=== PATIENT | female | born 1995 | race Caucasian/White ===

== ENCOUNTER 2016-12-16 09:37 | Emergency (ER) | payer SELFPAY ==
[~2016-12-16] VITALS: Ht 170.2 cm; Wt 92.6 kg
[~2016-12-16 09:37] MED LIST: PREN0.01 PO
[2016-12-16 09:40] VITALS: BP 141/69; PULSE 77; RESP 16; TEMP 97.8; O2SAT 100
--- NOTE | 2016-12-16 09:56 | PD ---
HPI Chief Complaint: Complaint Time Seen by Provider: 09:45 Travel History International Travel<30 days: No Contact w/Intl Traveler<30days: No Traveled to known affect area: No History of Present Illness HPI Patient presents with complaints of urinary frequency and pain since this morning. Reports vaginal bleeding with hematuria. Denies nausea vomiting diarrhea or fever. Unsure status. Last menses 10/25/16. PFSH Past Medical History Hx Anticoagulant Therapy: No Cardiovascular Problems: No Chemotherapy: No Cerebrovascular Accident: No Diabetes: No Respiratory: No ?: Unknown Past Surgical History Hysterectomy: No Social History Alcohol Use: No Tobacco Use: No Substance Use: No Allergies-Medications (Allergen,Severity, Reaction): Coded Allergies: No Known Allergies (Unverified , 12/16/16) Reported Meds & Prescriptions Reported Meds & Active Scripts Active No Active Prescriptions or Reported Medications Review of Systems General / Constitutional: No: Fever Eyes: No: Visual changes HENT: No: Headaches Cardiovascular: No: Chest Pain or Discomfort Respiratory: No: Shortness of Breath Gastrointestinal: No: Abdominal Pain Genitourinary: Positive: Dysuria, Hematuria, Vaginal Bleeding Musculoskeletal: No: Pain Skin: No Rash Neurologic: No: Weakness Psychiatric: No: Depression Endocrine: No: Polydipsia Hematologic/Lymphatic: No: Easy Bruising Physical Exam Narrative GENERAL: Well-nourished, well-developed patient. SKIN: Focused skin assessment warm/dry. HEAD: Normocephalic. EYES: No scleral icterus. No injection or drainage. NECK: Supple, trachea midline. No JVD or lymphadenopathy. CARDIOVASCULAR: Regular rate and rhythm without murmurs, gallops, or rubs. RESPIRATORY: Breath sounds equal bilaterally. No accessory muscle use. GASTROINTESTINAL: Abdomen soft, non-tender, nondistended. MUSCULOSKELETAL: No cyanosis, or edema. BACK: Nontender without obvious deformity. No CVA tenderness. Data Data Last Documented VS Vital Signs Date Time Temp Pulse Resp B/P (MAP) Pulse Ox O2 Delivery O2 Flow Rate FiO2 12/16/16 09:40 97.8 77 16 141/69 (93) 100 Orders Orders Urinalysis - C+S If Indicated (12/16/16 09:52) Ed Urine Pregnancytest Poc (12/16/16 09:52) Labs Laboratory Tests Test 12/16/16 09:55 Urine Collection Type CLEAN CATCH Urine Color YELLOW Urine Turbidity CLEAR Urine pH 7.0 Urine Specific [place] 1.017 Urine Protein 100 mg/dL Urine Glucose (UA) NEG mg/dL Urine Ketones TRACE mg/dL Urine Occult Blood LARGE Urine Nitrite NEG Urine Bilirubin NEG Urine Leukocyte Esterase TRACE Urine RBC 0-3 /hpf Urine Squamous Epithelial Cells 6-8 /hpf Urine Amorphous Sediment MOD Microscopic Urinalysis Comment CULT NOT INDICATED Urine Collection Time 0900 [facility] Medical Decision Making Medical Screen Exam Complete: Yes Emergency Medical Condition: Yes Differential Diagnosis Miscarriage, UTI, hematuria, dysuria Narrative Course Assessment and plan discussed with patient and mother at bedside Diagnosis Primary Impression: Hematuria Qualified Codes: R31.9 - Hematuria, unspecified Patient Instructions: General Instructions Additional Instructions: Encourage fluids and a cranberry supplement, follow-up with PCP, return to emergency with any onset of new symptoms Med/Other Pt SpecificInfo: Prescription(s) given Scripts Ciprofloxacin (Cipro) 500 Mg Tab 500 MG PO BID for Infection for 3 Days, #6 TAB 0 Refills Prov: Mushtaq Craft MD 12/16/16 Disposition: 01 DISCHARGE HOME Condition: Good Mushtaq Craft MD Dec 16, 2016 09:56
[2016-12-16 10:02] LABS: BLOOD, URINE LARGE (NEG); GLUCOSE,URINE NEG (NEG); KETONE, URINE TRACE mg/dL (NEG); NITRITE,URINE NEG (NEG)
[2016-12-16 10:04] LABS: METHOD OF COLLECTION CLEAN CATCH; URINE COLOR YELLOW (YELLW/STRAW)
[2016-12-16 10:07] LABS: COMMENT (UR) CULT NOT INDICATED; CULTURE IF INDICATED CULT NOT INDICATED; RBC, URINE 0-3 /hpf (0-3)
[2016-12-16] MEDS ORDERED: CIPR-9 PO (10:23)
== END 2016-12-16 10:34 | disposition home or self-care (01) ==
LOC: PHED 09:37
DX: R31.9 Hematuria, unspecified (principal)
CPT/HCPCS: 81001; 84703; 99283

== ENCOUNTER 2016-12-26 19:43 | Emergency (ER) | payer SELFPAY ==
[~2016-12-26] VITALS: Ht 170.2 cm; Wt 80.0 kg
[~2016-12-26 19:43] MED LIST changes: +CIPR-9 PO; -PREN0.01 PO
[2016-12-26] MEDS ORDERED: IOHEXOL 350 MG/ML 10 ML VIAL (for RAD DIAG) IVCONTRAST ONE (19:44)
[2016-12-26 19:45] VITALS: BP 139/70; PULSE 126; RESP 16; TEMP 100; O2SAT 97
[2016-12-26] MEDS ORDERED: SODIUM CHLOR 0.9% 1000 ML INJ 1,000 ML IV SCH (22:09)
--- NOTE | 2016-12-26 22:14 | PD ---
HPI Chief Complaint: Abdominal Pain Time Seen by Provider: 22:03 Travel History International Travel<30 days: No Contact w/Intl Traveler<30days: No Traveled to known affect area: No History of Present Illness HPI 21-year-old female here for evaluation of abdominal pain, fever, and nausea. The patient reports that she was told by her physician that she may have had a miscarriage 2 weeks ago as she had some vaginal bleeding but negative . Her last menstrual period was at the end of October. Since yesterday she has been having mid abdominal pain that she rates as sharp, currently 5 out of 10, intermittently worse at times, no modifying factors. She has also felt very nauseous with decreased appetite, but has not vomited. She has had some loose bowel movements. She denies history of abdominal surgeries. No urinary symptoms. No vaginal bleeding or discharge. She is sexually active with one partner and believe she is in a monogamous relationship. No IVDU. PFSH Past Medical History Medical History: Denies Significant Hx Hx Anticoagulant Therapy: No Cardiovascular Problems: No Chemotherapy: No Cerebrovascular Accident: No Diabetes: No Diminished Hearing: No Respiratory: No Tetanus Vaccination: < 5 Years ?: Unknown LMP: 10/24/2016 Past Surgical History Surgical History: No Previous Surgery Hysterectomy: No Social History Alcohol Use: No Tobacco Use: No Substance Use: No Allergies-Medications (Allergen,Severity, Reaction): Coded Allergies: No Known Allergies (Unverified , 12/26/16) Reported Meds & Prescriptions Reported Meds & Active Scripts Active No Active Prescriptions or Reported Medications Review of Systems Except as stated in HPI: all other systems reviewed are Neg Physical Exam Narrative GENERAL: Well-developed, well-nourished, comfortable, no apparent distress. SKIN: Focused skin assessment warm/dry. No rash. No pallor. HEAD: Atraumatic. Normocephalic. EYES: Pupils equal and round. No scleral icterus. No injection or drainage. ENT: Mucous membranes pink and moist. NECK: Trachea midline. No JVD. CARDIOVASCULAR: Regular rate and rhythm. No murmur appreciated. RESPIRATORY: No accessory muscle use. Clear to auscultation. Breath sounds equal bilaterally. GASTROINTESTINAL: Abdomen soft, nondistended. Moderate periumbilical tenderness without rebound or guarding. Rest of abdomen is soft and nontender. Negative Zhao sign. No tenderness over McBurney's point. No hernias. Hyperactive bowel sounds. MECHANICAL PRESS OPERATOR: Exam performed in the presence of female nurse. Normal external genitalia. Scant/physiologic/slightly foul-smelling vaginal discharge. Normal cervix. No CMT. No adnexal masses or tenderness. MUSCULOSKELETAL: No obvious deformities. No clubbing. No cyanosis. No edema. No CVA tenderness. NEUROLOGICAL: Awake and alert. No obvious cranial nerve deficits. Motor grossly within normal limits. Normal speech. PSYCHIATRIC: Appropriate mood and affect; insight and judgment normal. Data Data Last Documented VS Vital Signs Date Time Temp Pulse Resp B/P (MAP) Pulse Ox O2 Delivery O2 Flow Rate FiO2 12/26/16 22:26 79 16 123/74 (90) 100 Room Air 12/26/16 19:45 100.0 Orders Orders Complete Blood Count With Diff (12/26/16 22:09) Comprehensive Metabolic Panel (12/26/16 22:09) Lipase (12/26/16 22:09) Prothrombin Time / Inr (Pt) (12/26/16 22:09) Act Partial Throm Time (Ptt) (12/26/16 22:09) Urinalysis - C+S If Indicated (12/26/16 22:09) Ct Abd/Pel W Iv Contrast(Rout) (12/26/16 22:09) Iv Access Insert/Monitor (12/26/16 22:09) Ecg Monitoring (12/26/16 22:09) Oximetry (12/26/16 22:09) Ondansetron Inj (Zofran Inj) (12/26/16 22:15) Sodium Chlor 0.9% 1000 Ml Inj (Ns 1000 M (12/26/16 22:09) Sodium Chloride 0.9% Flush (Ns Flush) (12/26/16 22:15) Ed Urine Pregnancytest Poc (12/26/16 22:09) Urine Culture (12/26/16 22:15) Iohexol 350 Inj (Omnipaque 350 Inj) (12/26/16 19:44) Ceftriaxone Inj (Rocephin Inj) (12/27/16 00:30) Gc And Chlamydia Pcr (12/27/16 00:21) Wet Prep Profile (12/27/16 00:21) Potassium Chloride (Kcl) (12/27/16 01:00) Labs Laboratory Tests Test 12/26/16:15 12/27/16 00:30 White Blood Count 6.7 TH/MM3 Red Blood Count 4.64 MIL/MM3 Hemoglobin 13.5 GM/DL Hematocrit 40.0 % Mean Corpuscular Volume 86.3 FL Mean Corpuscular Hemoglobin 29.1 PG Mean Corpuscular Hemoglobin Concent 33.7 % Red Cell Distribution Width 14.7 % Platelet Count 246 TH/MM3 Mean Platelet Volume 8.1 FL Neutrophils (%) (Auto) 85.4 % Lymphocytes (%) (Auto) 9.6 % Monocytes (%) (Auto) 4.7 % Eosinophils (%) (Auto) 0.0 % Basophils (%) (Auto) 0.3 % Neutrophils # (Auto) 5.7 TH/MM3 Lymphocytes # (Auto) 0.6 TH/MM3 Monocytes # (Auto) 0.3 TH/MM3 Eosinophils # (Auto) 0.0 TH/MM3 Basophils # (Auto) 0.0 TH/MM3 CBC Comment DIFF FINAL Differential Comment Prothrombin Time 11.4 SEC Prothromb Time International Ratio 1.0 RATIO Activated Partial Thromboplast Time 25.5 SEC Urine Color YELLOW Urine Turbidity HAZY Urine pH 6.0 Urine Specific [place] 1.032 Urine Protein 30 mg/dL Urine Glucose (UA) NEG mg/dL Urine Ketones NEG mg/dL Urine Occult Blood NEG Urine Nitrite NEG Urine Bilirubin NEG Urine Urobilinogen LESS THAN 2.0 MG/DL Urine Leukocyte Esterase SMALL Urine RBC 12 /hpf Urine WBC 12 /hpf Urine Squamous Epithelial Cells 22 /hpf Urine Bacteria RARE /hpf Urine Hyaline Casts 1 /lpf Urine Mucus MOD /lpf Microscopic Urinalysis Comment CULTURE INDICATED Blood Urea Nitrogen 7 MG/DL Creatinine 0.82 MG/DL Random Glucose 107 MG/DL Total Protein 7.8 GM/DL Albumin 3.9 GM/DL Calcium Level 8.1 MG/DL Alkaline Phosphatase 85 U/L Aspartate Amino Transf (AST/SGOT) 16 U/L Alanine Aminotransferase (ALT/SGPT) 22 U/L Total Bilirubin 0.5 MG/DL Sodium Level 138 MEQ/L Potassium Level 3.1 MEQ/L Chloride Level 104 MEQ/L Carbon Dioxide Level 26.8 MEQ/L Anion Gap 7 MEQ/L Estimat Glomerular Filtration Rate 88 ML/MIN Lipase 82 U/L Clue Cells (Wet Prep) NONE SEEN Vaginal Trichomonas (Wet Prep) NONE SEEN Vaginal Yeast (Wet Prep) NONE SEEN MDM Medical Decision Making Medical Screen Exam Complete: Yes Emergency Medical Condition: Yes Differential Diagnosis Appendicitis, colitis, hepatobiliary disease, pancreatitis, gastroenteritis, UTI , cystitis, PID less likely Narrative Course Initial vital signs showed heart rate 126, blood pressure 139/70, pulse ox 97% on room air, oral temp of 100F. Repeat vital signs show heart rate 79, blood pressure 123/74, sats 100% on room air. CBC: WBC 6.7, hemoglobin 13.5, hematocrit 40, platelets 246. CMP is remarkable for potassium 3.1, otherwise unremarkable. Lipase is 82. Urine is negative. UA: Hazy, 30 protein, small leukocyte esterase, 12 RBCs, 12 wbc's, rare bacteria, moderate mucus, [address] abdomen pelvis: CONCLUSION: 1. No obstruction, inflammatory changes or other acute abnormality. 2. Upper limits of normal to slightly enlarged spleen, nonspecific. 3. Several small cysts of each ovary measuring up to 14 mm in size. No dominant cyst demonstrated. No free fluid. Wet prep: Is negative for yeast, negative for clue cells, negative for Trichomonas. The patient was made aware of all findings per she was given a dose of IV Rocephin for her UA findings. She is in a monogamous relationship and is at low risk for STI. No clinical exam findings to suggest PID. Gonorrhea and chlamydia PCR sent. She is stable for discharge home with outpatient follow-up with her primary care physician or METAL FURNITURE PANEL COVERER physician this week. She is overall very well-appearing and is in no discomfort. She was informed on when to return to the emergency department. She verbalizes understanding and agreement with plan. Diagnosis Primary Impression: Abdominal pain Qualified Codes: R10.84 - Generalized abdominal pain Additional Impressions: Ovarian cyst Qualified Codes: N83.201 - Unspecified ovarian cyst, right side; N83.202 - Unspecified ovarian cyst, left side UTI (urinary tract infection) Qualified Codes: N39.0 - Urinary tract infection, site not specified; R31.9 - Hematuria, unspecified Referrals: Program Director Group Work 1 week Primary Care Physician 1 week Additional Instructions: Follow-up with a primary care physician this week. Follow-up with a weaver narrow fabrics this week. Take Tylenol/ibuprofen for pain. Return to the emergency department for worsening symptoms or any other concerns. Scripts Nitrofurantoin Monohydrate Macrocrystals (Macrobid) 100 Mg Cap 100 MG PO BID for Infection for 5 Days, #10 CAP 0 Refills Prov: Jason Pope MD 12/27/16 Disposition: 01 DISCHARGE HOME Condition: Stable Jason Pope MD Dec 26, 2016 22:14
[2016-12-26] MEDS ORDERED: ONDANSETRON HCL 4 MG/2 ML VIAL IVP ONE (22:15)
[2016-12-26] MEDS ORDERED: SODIUM CHLORIDE 0.9% FLUSH 10 ML FLUSH IV FLUSH PRN (22:15)
[2016-12-26 22:26] VITALS: BP 123/74; PULSE 79; RESP 16; O2SAT 100
[2016-12-26 22:35] LABS: AUTOMATED NEUTROPHIL # 5.7 TH/MM3 (1.8-7.7); BASOPHIL % 0.3 % (0.0-2.0); HEMO FLAGS DIFF FINAL; LYMPH % 9.6 % (9.0-44.0); LYMPHOCYTE # 0.6 TH/MM3 (1.0-4.8); MEAN CELL VOLUME 86.3 FL (80.0-100.0); MEAN CORPUSCULAR HEMOGLOBIN 29.1 PG (27.0-34.0); MEAN CORPUSCULAR HGB CONC 33.7 % (32.0-36.0); MONO % 4.7 % (0.0-8.0); NEUT % 85.4 % (16.0-70.0); PLATELET COUNT 246 TH/MM3 (150-450); RED BLOOD COUNT 4.64 MIL/MM3 (4.00-5.30); RED CELL DISTRIBUTION WIDTH 14.7 % (11.6-17.2); WHITE BLOOD COUNT 6.7 TH/MM3 (4.0-11.0)
[2016-12-26 22:37] LABS: BACTERIA, URINE RARE /hpf; BLOOD, URINE NEG (NEG); COMMENT (UR) CULTURE INDICATED; CULTURE IF INDICATED CULTURE INDICATED; GLUCOSE,URINE NEG (NEG); HYALINE CAST, URINE 1 /lpf (RARE); KETONE, URINE NEG (NEG); MUCUS URINE MOD /lpf (OCC); NITRITE,URINE NEG (NEG); SQUAMOUS EPITHELIAL CELL URINE 22 /hpf (0-5); URINE COLOR YELLOW (YELLW/STRAW)
[2016-12-26 22:52] LABS: ALT (GPT) 22 U/L (10-53); ANION GAP 7 MEQ/L (5-15); AST (GOT) 16 U/L (15-37); BICARBONATE 26.8 MEQ/L (21.0-32.0); BLOOD UREA NITROGEN 7 MG/DL (7-18); CHLORIDE 104 MEQ/L (98-107); GLOMERULAR FILTRATION RATE 88 ML/MIN (>89); POTASSIUM 3.1 MEQ/L (3.5-5.1); SODIUM (NA) 138 MEQ/L (136-145)
[2016-12-26 22:54] LABS: ALKALINE PHOSPHATASE 85 U/L (45-117); APTT (PATIENT) 25.5 SEC (24.3-30.1); PROTHROMBIN TIME - PATIENT 11.4 SEC (9.8-11.6); TOTAL BILIRUBIN ADULT 0.5 MG/DL (0.2-1.0)
--- NOTE | 2016-12-27 00:11 | RADRPT ---
EXAM DATE/TIME: 12/26/2016 23:47 [place] COMPARISON: No previous studies available for comparison. INDICATIONS : Bilateral abdomen pain for one day. IV CONTRAST: 86 cc Omnipaque 350 (iohexol) IV ORAL CONTRAST: No oral contrast ingested. RADIATION DOSE: 11.80 CTDIvol (mGy) MEDICAL HISTORY : None SURGICAL HISTORY : None. ENCOUNTER: Initial ACUITY: 1 day PAIN SCALE: 2/10 LOCATION: Bilateral upper quadrant TECHNIQUE: Volumetric scanning of the abdomen and pelvis was performed. Using automated exposure control and ad justment of the mA and/or kV according to patient size, radiation dose was kept as low as reasonably achievable to obtain optimal diagnostic quality images. DICOM format image data is available electro nically for review and comparison. FINDINGS: LOWER LUNGS: The visualized lower lungs are clear. LIVER: Homogeneous density without lesion. There is no dilation of the biliary tree. No calcified gallston es. SPLEEN: Upper limits of normal to mildly enlarged at approximately 6.7 x 11.4 x 13.9 cm PANCREAS: Within normal limits. KIDNEYS: Normal in size and shape. There is no mass, stone or hydronephrosis. ADRENAL GLANDS: Within normal limits. VASCULAR: There is no aortic aneurysm. BOWEL/MESENTERY: The stomach, small bowel, and colon demonstrate no acute abnormality. There is no free intraperitone al air or fluid. Normal appendix. ABDOMINAL WALL: Within normal limits. RETROPERITONEUM: There is no lymphadenopathy. BLADDER: No wall thickening or mass. REPRODUCTIVE: A few small cysts of both ovaries. No free fluid. INGUINAL: There is no lymphadenopathy or hernia. MUSCULOSKELETAL: Within normal limits for patient age. CONCLUSION: 1. No obstruction, inflammatory changes or other acute abnormality. 2. Upper limits of normal to slightly enlarged spleen, nonspecific. 3. Several small cysts of each ovary measuring up to 14 mm in size. No dominant cyst demonstrated. No free fluid. Fermin Maria MD on December 27, 2016 at 0:06 Board Certified Radiologist. This report was verified electronically.
[2016-12-27] MEDS ORDERED: cefTRIAXone INJ 1,000 MG in SODIUM CHLORIDE 0.9% INJ 100 ML IV ONE (00:30)
[2016-12-27] MEDS ORDERED: POTASSIUM CHLORIDE 20 MEQ CONTROLLED RELEASE TAB PO ONE (01:00)
[2016-12-27] MEDS ORDERED: MACR100C2 PO (01:05)
[2016-12-27 01:29] VITALS: BP 116/65
[2016-12-27 02:44] LABS: CHLAMYDIA PCR NOT DETECTED (NOT DETECT); NEISSERIA PCR NOT DETECTED (NOT DETECT)
== END 2016-12-27 01:30 | disposition home or self-care (01) ==
LOC: NEPD 19:43
DX: R10.84 Generalized abdominal pain (principal); N83.201 Unspecified ovarian cyst, right side; N83.202 Unspecified ovarian cyst, left side; N39.0 Urinary tract infection, site not specified; B96.89 Other specified bacterial agents as the cause of diseases classified elsewhere; R31.9 Hematuria, unspecified
CPT/HCPCS: 74177; 80053; 81001; 83690; 84703; 85025; 85610; 85730; 87086; 87210; 87491; 87591; 96361; 96374; 96375; 99285; J0696; J2405; J7030; Q9967